=== PATIENT | female | born 1945 | race Caucasian/White ===

== ENCOUNTER → 2016-12-23 | Outpatient (CLI) | payer MEDICARE, OTHER | LOC: GMAH 18:53 | PROVIDERS: ATTEND Family Medicine | DX: N30.00 Acute cystitis without hematuria (principal) ==

== ENCOUNTER → 2017-02-11 | Outpatient (CLI) | payer MEDICARE, OTHER | END | disposition home or self-care (01) | LOC: GMAH 10:35 | PROVIDERS: ATTEND Family Medicine | DX: E78.2 Mixed hyperlipidemia (principal); N39.0 Urinary tract infection, site not specified ==

== ENCOUNTER → 2017-03-13 | Outpatient (CLI) | payer MEDICARE, OTHER ==
--- NOTE | 2017-03-14 14:38 | MAM ---
History: Well woman exam. Date of exam: 03/13/2017 Services provided: Bilateral full field digital screening mammography. CAD, the images were reviewed with R2 computer aided detection. FINDINGS: Glandular tissue is scattered glandular contour. Exam is compared with 2014 study. No dominant mass, architectural distortion or clustered microcalcification. IMPRESSION: Benign exam Recommendation: Routine annual mammography BIRAD CATEGORY: 2 BENIGN Electronically signed by: Ana Paula Black MD 03/14/2017 2:38 PM CDT
== END ==
LOC: MAMMO 15:28
PROVIDERS: ATTEND Family Medicine
DX: Z12.31 Encounter for screening mammogram for malignant neoplasm of breast (principal)

== ENCOUNTER → 2017-08-18 | Outpatient (CLI) | payer MEDICARE, OTHER | END | disposition home or self-care (01) | LOC: GMAH 14:25 | PROVIDERS: ATTEND Family Medicine | DX: R53.82 Chronic fatigue, unspecified (principal) ==

== ENCOUNTER → 2018-01-05 | Outpatient (CLI) | payer MEDICARE, OTHER ==
--- NOTE | 2018-01-06 14:18 | RAD ---
EXAM DESCRIPTION: Chest,2 Views CLINICAL HISTORY: PAPILLEDEMA COMPARISON: None available FINDINGS: The cardiomediastinal silhouette is unremarkable. There is no airspace consolidation or pleural effusion. The bronchovascular markings are within normal limits. The lung volumes are at the upper limits of normal range. There is no pneumothorax or acute fracture. IMPRESSION: Negative exam. Electronically signed by: Oliver Porter MD 01/06/2018 2:17 PM [employer]
--- NOTE | 2018-01-06 14:26 | MRI ---
EXAM DESCRIPTION: MRI of brain/orbits without and with contrast CLINICAL HISTORY: Left papilledema. Eye pain and swelling COMPARISON: None. TECHNIQUE: Multiplanar, multisequence MR images of the brain/orbits, pre and post intravenous gadolinium FINDINGS: Normal appearance of the globes and optic nerves. No signal abnormality or pathologic enhancement No orbital mass lesion. Normal signal intensity and morphology of the extraocular muscles. No mass lesion or inflammatory process seen in the cavernous sinuses. Normal appearance of the optic chiasm and optic tracts Normal flow voids in the major intracranial arteries and dural venous sinuses included in the [id number]. Mucosal thickening in the bilateral ethmoid air cells, sphenoid and visualized superior maxillary sinuses. Minimal fluid in the maxillary sinuses Brain images demonstrate multifocal punctate T2/FLAIR hyperintensity subcortical and deep white matter, nonspecific compatible with mild microvascular ischemia. No pathologic enhancement throughout the brain. No restricted diffusion. Ventricles are normal in size and configuration IMPRESSION: Normal pre and postcontrast MRI orbits Electronically signed by: Manuel Carrera MD 01/06/2018 2:25 PM [facility] [place]
== END ==
LOC: LAB.O 09:39
PROVIDERS: ATTEND Ophthalmology Retina Specialist
DX: H47.10 Unspecified papilledema (principal)

== ENCOUNTER → 2018-02-17 | Outpatient (CLI) | payer MEDICARE, OTHER | LOC: GMAH 12:26 | PROVIDERS: ATTEND Family Medicine | DX: I10 Essential (primary) hypertension (principal); E78.2 Mixed hyperlipidemia ==

== ENCOUNTER → 2018-03-31 | Outpatient (CLI) | payer MEDICARE, OTHER ==
--- NOTE | 2018-04-01 12:17 | MRI ---
EXAM DESCRIPTION: Lumbar Spine w/o Contrast MRI. CLINICAL HISTORY: LUMBAR RADICULOPATHY COMPARISON: None. TECHNIQUE: Multiplanar, multiple standard sequences, non contrast MRI, lumbar spine. FINDINGS: L5-S1: Minimal disc desiccation. Disc space preserved with no bulging. Canal and foramina are patent. Posterior elements are unremarkable. L4-5: Anterior Modic type II endplate reactive changes. Minimal disc desiccation. Minimal anterior bulging. Tiny posterior bulge. Flavum ligament hypertrophy and bilateral facet arthrosis impressing on the posterior lateral thecal sac. Moderate left foraminal narrowing and mild right foraminal narrowing. Moderate canal narrowing. L3-4: Disc desiccation with disc space preserved and no bulging. Anterior Modic type II endplate reactive changes. Minimal hypertrophy of the flavum ligaments. Minimal disc bulge into the left foramen with minimal narrowing. Mild canal narrowing also. L2-3: Disc desiccation with anterior bulging. Anterior endplate Modic type II reaction with endplate ridging. Disc space preserved with no posterior bulge. Posterior elements unremarkable. Canal and foramina are patent. L1-2: Minimal disc desiccation with anterior bulging. Minimal anterior Modic type I endplate reaction. No posterior disc bulge. Posterior elements unremarkable. Canal and foramina are patent. Conus terminates at L1. T12-L1: Normal signal in the disc with disc space preserved and no bulging. Posterior elements are unremarkable. Canal and foramina are patent. Anatomic spine curvature. Paravertebral soft tissues showing minimal paravertebral muscle atrophy.. No marrow signal in the remaining vertebral bodies and the posterior elements. Vertebral bodies are not compressed at any level. IMPRESSION: 1. Multiple levels of disc desiccation and anterior spondylosis. No disc herniation. No canal or foraminal stenosis. 2. Anterior moderate spondylosis at L4-5 with moderate canal and left foraminal narrowing. Correlate for left L4 radiculopathy. 3. Anterior spondylosis L3-4 with tiny anterior and posterior disc bulge. No compression type vertebral body fractures at any level. Electronically signed by: Venkata Rolon MD 04/01/2018 12:16 PM CDT
--- NOTE | 2018-04-02 08:25 | MAM ---
EXAM DESCRIPTION: 3D Screening BILATERAL : Digital Mammography. CLINICAL HISTORY: 72 years Female SCREENING . No complaints. No family history of breast cancer. Postmenopausal. Has taken HRT 5 or more years ago. COMPARISON: 2-D digital screening bilateral study 03/13/2017.. Report from prior examination also reviewed. TECHNIQUE: Bilateral CC and MLO projection full-field images, 3-D tomosynthesis digital mammographic technique. Also bilateral synthesized CC/ MLO full-field images. CAD not utilized. FINDINGS: The breast parenchymal density pattern is: Scattered areas of fibroglandular density. No skin thickening or nipple retraction bilateral axillary lymph nodes. Bilateral solitary microcalcifications. No focal, stellate mass or density, focal asymmetry , and no suspicious microcalcifications or laterally. Stable mammograms compared to prior study, taking into account differences in mammographic technique IMPRESSION: BI-RADS CATEGORY: 2 - BENIGN FINDINGS. FOLLOW UP: Routine digital bilateral screening, one year interval from March 2018. Written communication explaining the IMPRESSION and follow-up, will be mailed to the patient and referring health care provider. According to the [employer], yearly mammograms are recommended starting at age 40 and continuing as long as a woman is in good health. Any breast change noted on a breast self-exam should be reported promptly to the patient's healthcare provider. Breast MRI is recommended for women with an approximately 20-25% or greater lifetime risk of breast cancer, including women with a strong family history of breast or ovarian cancer and women who have been treated for Hodgkin's disease. A negative mammographic report should not delay tissue diagnosis in patients with significant clinical history or physical findings. Extremely dense breast tissue limits the sensitivity of digital mammography. Electronically signed by: Venkata Rolon MD 04/02/2018 8:24 AM CDT
== END ==
LOC: MAMMO 08:55
PROVIDERS: ATTEND Family Medicine
DX: Z12.31 Encounter for screening mammogram for malignant neoplasm of breast (principal); M47.26 Other spondylosis with radiculopathy, lumbar region

== ENCOUNTER → 2019-02-19 | Outpatient (CLI) | payer MEDICARE, OTHER | LOC: GMAH 11:06 | PROVIDERS: ATTEND Family Medicine | DX: I10 Essential (primary) hypertension (principal) ==

== ENCOUNTER → 2019-06-09 | Outpatient (CLI) | payer MEDICARE, OTHER ==
--- NOTE | 2019-06-10 15:59 | CT ---
EXAM DESCRIPTION: Abdomen/Pelvis w/o Contrast: Computed Tomography. CLINICAL HISTORY: 73 years Female LOWER QUADRANT PAIN COMPARISON: CT scan abdomen and pelvis 05/03/2015. TECHNIQUE: Spiral-axial scans 2.5 x 2.5 mm intervals through the abdomen and pelvis with water soluble oral contrast; no IV contrast. Coronal and sagittal 2.0 mm reconstructions. Total Exam DLP: 787.29 mGy-cm. This exam was performed according to our departmental CT dose-optimization program which includes automated exposure control, adjustment of the mA and/or kV according to patient size and/or use of iterative reconstruction technique; to reduce radiation dose to as low as reasonably achievable (ALARA). FINDINGS: Lung bases and pleura: Negative. Trace amount of coronary artery calcium. Liver, stomach, spleen, and adrenal glands: Unremarkable. Pancreas, Gallbladder, and Ducts: Gallbladder visualized with increased density in the posterior dependent region. Duct and pancreas negative. Kidneys and Ureters: Minimal calcification in the ostia of the left renal artery. Otherwise negative. Mesentery: No fatty stranding, fascial thickening, free air or free fluid, or extravasated contrast material Aorta: Minimal atherosclerotic calcification with normal caliber of the outer wall. Small Bowel: Diffuse oral contrast. Negative. Terminal Ileum/Cecum: Contains oral contrast. Unremarkable. Appendix not seen. Colon: Contains oral contrast and minimal fecal matter. Diverticula in distal descending colon and sigmoid. No luminal narrowing, leakage of contrast, fluid collections, or inflammatory changes in the adjacent fat and fascia. Pelvic Organs: Unremarkable. Spine and Bony Pelvis: Minimal narrowing of the hip joints Abdominal Wall/Back Soft Tissues: Negative. IMPRESSION: 1. No small bowel bowel or acute colon abnormality, particularly in the left lower quadrant. Diverticulosis of the sigmoid colon without inflammation. No inflammatory changes in the abdomen or pelvis. Electronically signed by: Venkata Rolon MD 06/10/2019 3:57 PM CDT
== END ==
LOC: CT 10:10
PROVIDERS: ATTEND Surgery
DX: K57.30 Diverticulosis of large intestine without perforation or abscess without bleeding (principal)

== ENCOUNTER → 2019-09-09 | Outpatient (CLI) | payer MEDICARE, OTHER ==
--- NOTE | 2019-09-10 16:34 | MAM ---
EXAM DESCRIPTION: 3D Screening BILATERAL : Digital Mammography. CLINICAL HISTORY: 73 years Female ANNUAL SCREENING . No complaints. No personal or family history of breast cancer. Menarche age 13. Childbirth. Postmenopausal. HRT 5 or more years ago.. Lifetime risk of developing breast cancer (Tyrer-Cuzick model)(%): 4.1. COMPARISON: Bilateral screening digital breast tomosynthesis 03/31/2018, and 2-D digital screening bilateral mammography 03/13/2017.. TECHNIQUE: Bilateral CC and MLO projection full-field images, digital tomosynthesis mammographic technique. Bilateral digital 2-D full-field MLO images. CAD not available for tomosynthesis or 2-D images. FINDINGS: The breast parenchymal density pattern is: Scattered areas of fibroglandular density. No skin thickening or nipple retraction. Right axillary lymph nodes. Bilateral skin moles. No new focal, stellate mass or density, focal asymmetry , and no suspicious microcalcifications bilaterally. Stable mammograms compared to prior study. IMPRESSION: Benign exam. BIRAD CATEGORY: 2 BENIGN FINDINGS. RECOMMENDATIONS: FOLLOW UP: Routine digital bilateral mammographic screening, one year interval from August 2019. Written communication explaining the IMPRESSION and follow-up, will be mailed to the patient and referring health care provider. According to the [employer], yearly mammograms are recommended starting at age 40 and continuing as long as a woman is in good health. Any breast change noted on a breast self-exam should be reported promptly to the patient's healthcare provider. Breast MRI is recommended for women with an approximately 20-25% or greater lifetime risk of breast cancer, including women with a strong family history of breast or ovarian cancer and women who have been treated for Hodgkin's disease. A negative mammographic report should not delay tissue diagnosis in patients with significant clinical history or physical findings. Extremely dense breast tissue limits the sensitivity of digital mammography. Electronically signed by: Venkata Rolon MD 09/10/2019 4:33 PM CDT
== END ==
LOC: MAMMO 11:30
PROVIDERS: ATTEND Family Medicine
DX: Z12.31 Encounter for screening mammogram for malignant neoplasm of breast (principal)

== ENCOUNTER → 2020-09-19 | Outpatient (CLI) | payer MEDICARE, OTHER ==
--- NOTE | 2020-09-21 19:33 | MAM ---
EXAM DESCRIPTION: 3D Screening BILATERAL : Digital Mammography. CLINICAL HISTORY: 74 years Female screen No complaints and no family history breast cancer. Menarche age 15. Childbirth age 53. Postmenopausal age unknown. HRT 5 or more years ago.. Lifetime risk of developing breast cancer (Tyrer-Cuzick model)(%): 3.6. COMPARISON: Bilateral screening digital breast tomosynthesis August 2019 and March 2018. TECHNIQUE: Bilateral CC and MLO projection full-field images, digital tomosynthesis mammographic technique. Bilateral digital 2-D full-field MLO images. and CC images. CAD available for 2-D images. FINDINGS: The breast parenchymal density pattern is: Scattered areas of fibroglandular density. No skin thickening or nipple retraction. Axillary nodes. Microcalcifications are solitary. No new focal, stellate mass or density, focal asymmetry , and no suspicious microcalcifications bilaterally. Stable mammograms compared to prior study. IMPRESSION: Benign exam. BIRAD CATEGORY: 2 BENIGN FINDINGS. RECOMMENDATIONS: FOLLOW UP: Routine digital bilateral mammographic screening, one year interval from August 2020. Written communication explaining the IMPRESSION and follow-up, will be mailed to the patient and referring health care provider. According to the [employer], yearly mammograms are recommended starting at age 40 and continuing as long as a woman is in good health. Any breast change noted on a breast self-exam should be reported promptly to the patient's healthcare provider. Breast MRI is recommended for women with an approximately 20-25% or greater lifetime risk of breast cancer, including women with a strong family history of breast or ovarian cancer and women who have been treated for Hodgkin's disease. A negative mammographic report should not delay tissue diagnosis in patients with significant clinical history or physical findings. Extremely dense breast tissue limits the sensitivity of digital mammography. Electronically signed by: Venkata Rolon MD 09/21/2020 7:32 PM CDT
== END ==
LOC: MAMMO 09:00
PROVIDERS: ATTEND Family Medicine
DX: Z12.31 Encounter for screening mammogram for malignant neoplasm of breast (principal)

== ENCOUNTER → 2020-11-14 | Outpatient (CLI) | payer MEDICARE, OTHER | LOC: GMA MATASK 14:29 | PROVIDERS: ATTEND Family Medicine | DX: I10 Essential (primary) hypertension (principal) ==